=== PATIENT | female | born 1955 | race Caucasian/White ===

== ENCOUNTER 2017-02-14 13:04 | Emergency (ER) | payer OTHER ==
[~2017-02-14] VITALS: Ht 167.6 cm; Wt 74.8 kg
[~2017-02-14 13:04] MED LIST: ANT12.5 PO; ATENOLOL50 MG PO; ATORVASTATIN CA20 M1 PO; CIPRO HC10 ML AS; ERYOO OS; PHENOBARBITAL97.2 MG PO; RXMED AS; VENLAFAXINE PO
[2017-02-14 13:10] VITALS: BP 125/64
== END 2017-02-14 14:40 | disposition home or self-care (01) ==
LOC: ED 13:04
DX: F41.0 Panic disorder [episodic paroxysmal anxiety] (principal); I10 Essential (primary) hypertension; E78.00 Pure hypercholesterolemia, unspecified; E03.9 Hypothyroidism, unspecified

== ENCOUNTER 2017-06-08 14:56 | Emergency (ER) | payer OTHER ==
[~2017-06-08] VITALS: Ht 162.6 cm; Wt 96.2 kg
[2017-06-08 16:49] VITALS: BP 132/72
== END 2017-06-08 16:49 | disposition home or self-care (01) ==
LOC: ED 14:56
DX: N39.0 Urinary tract infection, site not specified (principal); I10 Essential (primary) hypertension; Z88.0 Allergy status to penicillin; Z88.2 Allergy status to sulfonamides; Z90.49 Acquired absence of other specified parts of digestive tract
CPT/HCPCS: 82962

== ENCOUNTER 2017-11-08 14:56 | Emergency (ER) | payer OTHER ==
[~2017-11-08] VITALS: Ht 162.6 cm; Wt 97.1 kg
[2017-11-08 16:55] LABS: BASOPHIL % 0.7 % (0-2); PLATELET COUNT 292 x10^3mcL (130-400)
[2017-11-08 16:56] LABS: CALCIUM 8.7 mg/dL (8.5-10.1); CHLORIDE SERUM 99 mmol/L (98-107); CREATININE SERUM 0.9 mg/dL (0.6-1.0); GFR1 > 60 mL/min; GLUCOSE SERUM 119 mg/dL (74-106); POTASSIUM SERUM 4.3 mmol/L (3.5-5.1); RED CELL DISTRIBUTION WIDTH 14.7 % (11.5-14.5); SODIUM SERUM 137 mmol/L (136-145)
[2017-11-08 17:08] LABS: ALBUMIN 3.9 g/dL (3.4-5.0); ALKALINE PHOSPHATASE 99 U/L (46-116); ALT/SGPT 26 U/L (14-59); AMYLASE 56 U/L (25-115); AST/SGOT 13 U/L (15-37); BILIRUBIN TOTAL 0.3 mg/dL (0.20-1.00); CHOLESTEROL 191 mg/dL (<200); HDL CHOLESTEROL 68 mg/dL (40-60); LIPASE 242 IU/L (73-393); T4(THYROXINE) 7.6 ug/dL (4.7-13.3); TOTAL PROTEIN, SERUM 7.5 g/dL (6.4-8.2)
[2017-11-08 17:17] LABS: UA SPECIFIC GRAVITY 1.025 (1.005-1.035); microscopic required? YES; urine erythrocyte NEGATIVE (NEGATIVE)
[2017-11-08 18:28] LABS: AMPHETAMINE QUAL UR NONE DETECTED (NEG <=1000)
[2017-11-08 19:48] VITALS: BP 136/64
== END 2017-11-08 19:48 | disposition home or self-care (01) ==
LOC: ED 14:56
PROVIDERS: Emergency Medicine
DX: I10 Essential (primary) hypertension (principal); E78.00 Pure hypercholesterolemia, unspecified; F32.9 Major depressive disorder, single episode, unspecified; G40.909 Epilepsy, unspecified, not intractable, without status epilepticus; E66.9 Obesity, unspecified; Z88.0 Allergy status to penicillin; Z88.2 Allergy status to sulfonamides
CPT/HCPCS: 36415; 82962; 83880; G0480; Q0092